=== PATIENT | female | born 1945 | race Caucasian/White ===

== ENCOUNTER → 2017-03-17 | Outpatient (CLI) | payer MEDICARE ==
[~2017-03-17] MED LIST: ALLO100T PO; ASPI1TAB PO; ATEN50TA2 PO; CARV3.12 PO; CIPR500T89 PO; DULO1CAP2 PO; FLAG500T PO; FURO40TA2 PO; HYDR-4274 PO; KLOR1TAB73 PO; LACT10SO29 PO; MAGN1TAB25 PO; NADO20TA PO; NEXI40CA PO; PROT1TAB2 PO; SPIR50TA2 PO; SYNT50TA PO; TRAM50TA2 PO; ZOFR20TA PO
[2017-03-17 15:50] LABS: BASO % 0.7 % (0.0-1.0); EOS # 0.2 K/mm3 (0.0-0.50); EOS % 3.3 % (0.0-3.0); LARGE UNSTAINED CELL # 0.2 K/mm3 (0.0-0.4); LARGE UNSTAINED CELL % 2.1 % (0.0-4.0); LYMPH % 14.1 % (24.0-44.0); MEAN CORPUSCULAR HEMOGLOBIN 29.3 pg (27.0-33.0); MEAN CORPUSCULAR HGB CONC 31.3 g/dl (32.0-36.5); MEAN CORPUSCULAR VOLUME 93.5 fl (80.0-96.0); MONO # 0.6 K/mm3 (0.0-0.8); NEUTROPHILS # 5.1 K/mm3 (1.8-7.7); NEUTROPHILS % 71.8 % (36.0-66.0); PLATELET COUNT, AUTOMATED 175 k/mm3 (150-450); RED CELL DISTRIBUTION WIDTH 16.5 % (11.5-14.5)
[2017-03-17 15:56] LABS: INR 1.09
[2017-03-17 16:28] LABS: ALBUMIN 3.5 GM/DL (3.2-5.2); BILIRUBIN,DIRECT 0.3 MG/DL (0.0-0.2); BILIRUBIN,TOTAL 0.8 MG/DL (0.2-1.0); CALCIUM LEVEL 9.3 MG/DL (8.8-10.2); CREATININE FOR GFR 1.18 MG/DL (0.55-1.02); GLOMERULAR FILTRATION RATE 48.1 (>39); POTASSIUM SERUM 3.7 MEQ/L (3.5-5.1)
== END ==
LOC: M LAB 15:29
PROVIDERS: ATTEND Internal Medicine Gastroenterology
DX: K74.60 Unspecified cirrhosis of liver (principal)

== ENCOUNTER → 2017-03-25 | Outpatient (CLI) | payer MEDICARE ==
--- NOTE | 2017-03-25 16:01 | REP ---
ABDOMINAL ULTRASOUND: REASON: History of cirrhosis and hepatic parenchymal mass. COMPARISON: 08/11/2016. The patient is status-post cholecystectomy. The technologist has made note of the patients worksheet that the examination is extremely limited and the area of interest in the right lobe of the liver is seen in an extremely limited fashion. Multiple sonographic images of the liver again showing micronodular hepatic surface. There is a 3.8 x 3.8 x 2.6 cm sized mixed echo area in the right lobe of the liver. There is no evidence of intrahepatic ductal dilatation. The common bile duct measures between 3-4 mm. There is no change in right kidney or imaged portion of the pancreas. IMPRESSION: Hepatic lesion and exam limitations as described above. There is also evidence of cirrhosis. I would recommend repeat CT examination of the abdomen before ad after intravenous contrast, otherwise it can be compared to the prior exam of 10/01/2016 if clinically relevant. Signed by Mart Pisano DO 03/25/2017 04:12 P
== END ==
LOC: M LAB 09:57
PROVIDERS: ATTEND Internal Medicine Gastroenterology
DX: K74.60 Unspecified cirrhosis of liver (principal); Z90.49 Acquired absence of other specified parts of digestive tract; R93.3 Abnormal findings on diagnostic imaging of other parts of digestive tract

== ENCOUNTER → 2017-05-19 | Outpatient (CLI) | payer MEDICARE ==
[~2017-05-19] MED LIST changes: +CIPR-249 PO; -CIPR500T89 PO; -HYDR-4274 PO; +HYDR50TA70 PO
[2017-05-19 14:46] LABS: CREATININE FOR GFR 1.06 MG/DL (0.55-1.02); GLOMERULAR FILTRATION RATE 54.4 (>39)
== END ==
LOC: M LAB 13:55
PROVIDERS: ATTEND Physician Assistant Medical
DX: K74.60 Unspecified cirrhosis of liver (principal)

== ENCOUNTER → 2017-05-19 | Outpatient (CLI) | payer MEDICARE ==
[~2017-05-19] MED LIST changes: +GASTROGRAFIN SOLUTION 30ML (Q9963) As Ordered ONE; +ISOVUE-370 76% 100ML VIAL (Q9967) As Ordered ONE
--- NOTE | 2017-05-19 16:27 | REP ---
Clinical: Cirrhosis with portal hypertension and possible hepatic mass. Technique: Axial contrast enhanced images of the abdomen using oral and 100 ml Isovue 370 intravenous contrast material with coronal and sagittal re-formations. Comparison: 10/01/2016. 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 There is a heterogeneously enhancing infiltrating area within the posterior segment right lobe of the liver (images 19 - 36) which is concerning for hepatoma and requires correlation. Mild splenomegaly. Pancreas, bilateral adrenal glands and kidneys are relatively normal. Visualized small large bowel is unremarkable. No ascites. No significant adenopathy. Abdominal aorta without aneurysm. Musculoskeletal structures intact. Lung bases demonstrate chronic interstitial changes. Impression: Ill-defined infiltrating heterogeneously enhancing lesion in the right lobe of the liver slightly more prominent than prior examination and concerning for underlying hepatoma. Consideration for biopsy may be warranted. Signed by Garrett Ann MD 05/19/2017 04:18 P
== END ==
LOC: M LAB 14:09
PROVIDERS: ATTEND Internal Medicine Gastroenterology
DX: R93.3 Abnormal findings on diagnostic imaging of other parts of digestive tract (principal); K74.60 Unspecified cirrhosis of liver
CPT/HCPCS: 36415; 74160; 82565; 84520; Q9963; Q9967

== ENCOUNTER → 2017-07-29 | Outpatient (CLI) | payer MEDICARE ==
[~2017-07-29] MED LIST changes: -GASTROGRAFIN SOLUTION 30ML (Q9963) As Ordered ONE; -ISOVUE-370 76% 100ML VIAL (Q9967) As Ordered ONE; +LIDOCAINE 1% MDV 20ML VIAL As Ordered ONE
--- NOTE | 2017-07-29 15:17 | REP ---
ULTRASOUND GUIDED LIVER BIOPSY: The procedure was performed under the direct supervision of Dr. Sullivan. The patient has a history of a 3.8 x 3.8 x 2.6 cm sized mixed echo area in the right lobe of the liver seen on a previous ultrasound dated 03/25/2017. The risks and benefits of the procedure were explained to the patient and informed consent was obtained. A lesion in the right lobe of the liver was localized using ultrasound guidance. The skin was prepped and draped in a sterile fashion. 1% Xylocaine was used as local anesthetic. Using ultrasound guidance, a 19/20-gauge coaxial needle biopsy system was inserted and advanced into the mass. Six core biopsy samples were obtained and sent to the lab. The patient tolerated the procedure well and there were no immediate complications. After the appropriate amount of monitored convalescence, the patient was discharged from the department. Reviewed by YULIANA Langley 07/29/2017 04:13 PEdited and Signed by Walter Sullivan MD 07/29/2017 04:45 P
== END ==
LOC: M RADPRO 10:05
PROVIDERS: ATTEND Internal Medicine Gastroenterology
DX: D37.6 Neoplasm of uncertain behavior of liver, gallbladder and bile ducts (principal); K74.60 Unspecified cirrhosis of liver; Z95.5 Presence of coronary angioplasty implant and graft; Z88.8 Allergy status to other drugs, medicaments and biological substances; F17.210 Nicotine dependence, cigarettes, uncomplicated; Z79.899 Other long term (current) drug therapy

== ENCOUNTER → 2017-10-19 | Outpatient (CLI) | payer MEDICARE ==
--- NOTE | 2017-10-19 17:55 | REP ---
CT-guided liver biopsy The procedure was performed under the direct supervision of Dr. Malave The patient has a history of a 3.8 x 3.8 x 2.6 cm sized mixed echo area in the right lobe of the liver seen on a previous ultrasound dated 03/25/2017. This is also seen on a previous CT scan dated 05/19/2017. The patient had a ultrasound-guided liver biopsy performed on 07/29/2017. The patient is referred for rebiopsy. The risks and benefits of the procedure were explained to the patient and informed consent was obtained. The right liver lesion was localized using CT guidance. The skin was prepped and draped in a sterile fashion. 1% Xylocaine was used as a local anesthetic. Using CT guidance a 19/20 gauge coaxial needle biopsy system was inserted and advanced into the lesion. Five core biopsy samples were obtained and sent to lab. The patient tolerated the procedure well and there were no immediate complications. After the appropriate amount of monitored convalescence the patient was discharged from the department. Reviewed by YULIANA Langley 10/19/2017 03:37 PSigned by Patrice Malave MD 10/19/2017 05:46 P
== END ==
LOC: M RADPRO 10:06
PROVIDERS: ATTEND Internal Medicine Gastroenterology
DX: K74.60 Unspecified cirrhosis of liver (principal); D37.6 Neoplasm of uncertain behavior of liver, gallbladder and bile ducts; Z95.5 Presence of coronary angioplasty implant and graft; Z90.49 Acquired absence of other specified parts of digestive tract; Z88.8 Allergy status to other drugs, medicaments and biological substances; Z79.899 Other long term (current) drug therapy